=== PATIENT | male | born 2000 | race African-American/Black ===

== ENCOUNTER 2024-01-25 17:53 | Inpatient (IN) | payer OTHER ==
[~2024-01-25] VITALS: Ht 180.3 cm; Wt 95.5 kg
[2024-01-25 18:52] LABS: HEMATOCRIT 43.4 % (42.0-52.0); HEMOGLOBIN 14.8 g/dl (13.5-17.5); MEAN CORPUSCULAR HGB CONC 34.1 g/dl (32.0-36.5); PLATELET COUNT, AUTOMATED 254 10^3/uL (150-450); RED BLOOD COUNT 4.77 10^6/uL (4.30-6.10); WHITE BLOOD COUNT 8.1 10^3/uL (4.0-10.0)
[2024-01-25 19:23] LABS: SALICYLATE LEVEL < 3.0 MG/DL (<30)
[2024-01-25 19:33] LABS: AMPHETAMINES LEVEL URINE NEGATIVE (NEGATIVE); BARBITURATES URINE NEGATIVE (NEGATIVE); BENZODIAZEPINES URINE NEGATIVE (NEGATIVE); CANNABINOIDS URINE NEGATIVE (NEGATIVE); COCAINE METABOLITE URINE NEGATIVE (NEGATIVE); METHADONE URINE NEGATIVE (NEGATIVE); OPIATES URINE NEGATIVE (NEGATIVE); PHENCYCLIDINE URINE NEGATIVE (NEGATIVE)
[2024-01-25 19:52] LABS: ALKALINE PHOSPHATASE 58 U/L (46-116); ALT/SGPT 25 U/L (7.0-40); AST/SGOT 16 U/L (<34); BILIRUBIN,DIRECT 0.3 MG/DL (<0.4); BILIRUBIN,TOTAL 0.6 MG/DL (0.3-1.2); BLOOD UREA NITROGEN 12 MG/DL (9-23); CALCIUM LEVEL 8.7 MG/DL (8.5-10.1); CARBON DIOXIDE LEVEL 27 MMOL/L (20-31); CHLORIDE LEVEL 106 MMOL/L (98-107); GLUCOSE, FASTING 94 MG/DL (60-100); POTASSIUM SERUM 4.1 MMOL/L (3.5-5.1); SODIUM LEVEL 139 MMOL/L (136-145); THYROID STIMULATING HORMONE 1.494 uIU/ML (0.55-4.78); TOTAL PROTEIN 6.8 G/DL (5.7-8.2)
[2024-01-25] MEDS ORDERED: HOME MED LIST COMPLETE! XX SCH (20:15)
[2024-01-25 20:55] LABS: CREATININE FOR GFR 1.03 MG/DL (0.70-1.30); ETHYL ALCOHOL (ETHANOL) < 0.003 % (0.000-0.010); GLOMERULAR FILTRATION RATE > 60.0 (>60)
[2024-01-26] MEDS ORDERED: MAALOX 30 ML SUSP *UDC PO PRN (19:45)
[2024-01-26] MEDS ORDERED: ACETAMINOPHEN TAB 650MG DOSE (2X325MG) PO PRN (19:45)
[2024-01-26] MEDS ORDERED: traZODone 50 MG TAB PO PRN (19:45)
[2024-01-26] MEDS ORDERED: IBUPROFEN 400MG TAB PO PRN (19:45)
[2024-01-26] MEDS ORDERED: MOM 30ML SUSPENSION UDC PO PRN (19:45)
[2024-01-26] MEDS ORDERED: diphenhydrAMINE 25MG CAP PO PRN (19:45)
[2024-01-26 23:15] VITALS: BP 133/80; TEMP 98.5; O2SAT 100
[2024-01-27 06:37] VITALS: BP 135/80; TEMP 97.7; O2SAT 100
[2024-01-27 18:31] VITALS: BP 130/82; TEMP 98.5
[2024-01-28 06:44] VITALS: BP 145/82; TEMP 98.2; O2SAT 100
== END 2024-01-28 12:55 | disposition home or self-care (01) | DRG 881 ==
LOC: M ED 17:53 → EDBD 17:53 → M ED INP 01-26 19:44 → M PSY 01-26 20:40
PROVIDERS: ADMIT Student in an Organized Health Care Education/Training Program; ATTEND Student in an Organized Health Care Education/Training Program
DX: F43.21 Adjustment disorder with depressed mood (principal); R45.851 Suicidal ideations; F17.210 Nicotine dependence, cigarettes, uncomplicated; Z11.52 Encounter for screening for COVID-19